=== PATIENT | female | born 1960 | race African-American/Black ===

== ENCOUNTER 2017-04-24 12:08 | Emergency (ER) | payer OTHER ==
[~2017-04-24] VITALS: Ht 160 cm; Wt 79.8 kg
[~2017-04-24 12:08] MED LIST: ADVAIR HFA 230M12 GM INH; AVELOX400 MG PO; CYCLOBENZAPRINE5 MG PO; DILAUDID 2 MG TA2 MG PO; HYDROCODONE-AP1 EAC6 PO; MUCINEX D TABL1 EAC1 PO; NORFLEX100 MG PO; ONDANSETRON HCL4 M2 PO; PERCOCET 5-3251 EACH PO; PHENERGAN 25 MG25 M1 PO; PREDNISONE 10 M10 M1 PO; PREDNISONE 10 M10 MG PO; PROVENTIL HFA6.7 G1 INH; TESSALON200 MG PO; VIBRAMYCIN 100100 M2 PO; ZOFRAN4 MG PO
[2017-04-24 12:43] LABS: BASOPHILS 0.5 % (0.0-2.0); EOSINOPHILS 1.3 % (0.0-3.0); HEMOGLOBIN 13.5 gm/dL (12.0-15.0); MCV 78.8 fL (80.0-100.0); MONOCYTES 5.7 % (1.0-8.0); PLATELET COUNT 257 thou/uL (150-400); POLYS 65.5 % (36.0-66.0); RDW 13.7 % (10.5-14.5); WBC 6.1 thou/uL (4.0-11.0)
[2017-04-24 12:45] LABS: ANION GAP 11 mmol/L (7-16); BUN 16 mg/dL (7-18); CHLORIDE 106 mmol/L (98-107); CO2 26 mmol/L (21-32); CREATININE 1.1 mg/dL (0.6-1.0); GLUCOSE 91 mg/dL (74-106); POTASSIUM 4.1 mmol/L (3.5-5.1); SODIUM 143 mmol/L (136-145)
[2017-04-24 12:51] LABS: ALBUMIN 4.4 g/dL (3.4-5.0); DIRECT BILIRUBIN < 0.1 mg/dL (<0.1-0.3); LIPASE 309 U/L (73-393); SGOT 24 U/L (15-37); SGPT 24 U/L (30-65); TOTAL BILIRUBIN 0.4 mg/dL (<0.1-1.0)
[2017-04-24 12:52] LABS: URINE BILIRUBIN NEGATIVE (Negative); URINE BLOOD NEGATIVE (Negative); URINE CLARITY CLEAR; URINE COLOR YELLOW; URINE GLUCOSE-RANDOM* NEGATIVE (Negative); URINE KETONES NEGATIVE (Negative); URINE LEUKOCYTES-REFLEX NEGATIVE (Negative); URINE NITRITE-REFLEX NEGATIVE (Negative); URINE PROTEIN (DIPSTICK) NEGATIVE (Negative); URINE SPECIFIC GRAVITY <= 1.005 (1.005-1.035); URINE UROBILINOGEN 0.2 E.U./dl (0.2-1.0)
[2017-04-24] MEDS ORDERED: IBUPROFEN 600600 M1 PO (16:29)
[2017-04-24] MEDS ORDERED: REGLAN 10 MG TA10 MG PO (16:29)
[2017-04-24] MEDS ORDERED: CYCLOBENZAPRINE5 MG PO (16:29)
[2017-04-24] MEDS ORDERED: ZOFRAN ODT4 MG PO (16:29)
[2017-04-24 16:38] VITALS: BP 141/81
== END 2017-04-24 16:47 | disposition home or self-care (01) ==
LOC: ER 12:08
PROVIDERS: Emergency Medicine
DX: M79.1 Myalgia (principal); R11.2 Nausea with vomiting, unspecified; Z88.5 Allergy status to narcotic agent; Z88.1 Allergy status to other antibiotic agents; Z88.6 Allergy status to analgesic agent; Z88.0 Allergy status to penicillin; Z88.8 Allergy status to other drugs, medicaments and biological substances; J45.909 Unspecified asthma, uncomplicated